=== PATIENT | male | born 1960 | race Caucasian/White ===

== ENCOUNTER → 2017-04-26 | Day surgery (SDC) | payer BC, OTHER ==
[~2017-04-26] MED LIST: HYDR-3533 PO; ROSU10 PO; TAMS0.4C67 PO; ZOFR4TAB3 SL
== END | disposition home or self-care (01) ==
LOC: ESDC 11:39
PROVIDERS: ATTEND Orthopaedic Surgery Orthopaedic Surgery of the Spine
DX: S83.242A Other tear of medial meniscus, current injury, left knee, initial encounter (principal); Z53.9 Procedure and treatment not carried out, unspecified reason
CPT/HCPCS: 99211; G0463

== ENCOUNTER → 2017-05-03 | Day surgery (SDC) | payer BC ==
[~2017-05-03] MED LIST changes: +ACETAMINOPHEN 325 MG TAB ONE; +BUPIVACAINE/EPINEPHRINE 0.5% PF 30 ML VIAL ONE; +KETOROLAC TROMETHAMINE 30 MG/ML (IVP) VIAL IV PUSH ONE; +LACTATED RINGER'S 1000 ML INJ 1,000 ML ONE; +MIDAZOLAM HCL 2 MG/2 ML VIAL ONE; +ONDANSETRON HCL 4 MG/2 ML VIAL IV PUSH ONE; +PROPOFOL 200 MG/20 ML AMP IV ONE; +ceFAZolin INJ 1,000 MG VIAL ONE
--- NOTE | 2017-05-03 16:56 | TN ---
cc: BREANN CHILDERS DATE OF SURGERY 05/03/2017 PREOPERATIVE DIAGNOSIS 1. Internal derangement of the left knee. 2. Probable medial meniscus tear, left knee. POSTOPERATIVE DIAGNOSIS Complex tear of the medial meniscus, left knee. PROCEDURE 1. Arthroscopy, left knee. 2. Arthroscopic medial meniscectomy. SURGEON Breann Childers MD ANESTHESIA General. ESTIMATED BLOOD LOSS Minimal. INDICATION This patient is a 57-year-old male with significant left knee pain. Investigative studies shows evidence of a complex tear of the posterior medial meniscus. He presents for surgical treatment. PROCEDURE The patient brought to the operating room, anesthetized in the supine position. Left leg was scrubbed with alcohol, followed by Hibiclens, followed Chloraprep and draped sterilely. Antibiotics were given within a 1 hour time window and a time-out was done. Inflow was established anterior and laterally. The knee was inflated. The suprapatellar pouch was unremarkable. Retropatellar surface showed grade 1 changes. The medial compartment showed a parrot beak type tear at the 9:30 position but evidence that this had torn through and had a detached bucket handle tear flipped into the notch. The medial femoral condyle and medial tibial plateau showed minimal changes. The ACL was normal. The lateral compartment was normal. A spinal needle was introduced along the medial joint line. Straight and angled punch was used to take the meniscus back to stable rim. The meniscus was debrided from approximately the 9 o'clock position to the posterior horn. All the fragments were floated free from the joint. The wound was irrigated copiously. The portals were injected with 0.5% Marcaine with epinephrine. They were closed with Steri-Strips and Benzoin. The patient was awakened and taken to recovery room in satisfactory condition. Breann Childers MD [facility] [place]O /4:25 PM /4:49 PM
== END | disposition home or self-care (01) ==
LOC: ESDC 13:49
PROVIDERS: ATTEND Orthopaedic Surgery Orthopaedic Surgery of the Spine
DX: S83.232A Complex tear of medial meniscus, current injury, left knee, initial encounter (principal)
CPT/HCPCS: 01400; 29881; J0690; J1885; J2250; J2405; J3010; J7120

== ENCOUNTER 2017-09-21 18:34 | Emergency (ER) | payer OTHER, BC ==
[~2017-09-21] VITALS: Ht 182.9 cm; Wt 120.0 kg
[~2017-09-21 18:34] MED LIST changes: -ACETAMINOPHEN 325 MG TAB ONE; -BUPIVACAINE/EPINEPHRINE 0.5% PF 30 ML VIAL ONE; -KETOROLAC TROMETHAMINE 30 MG/ML (IVP) VIAL IV PUSH ONE; -LACTATED RINGER'S 1000 ML INJ 1,000 ML ONE; -MIDAZOLAM HCL 2 MG/2 ML VIAL ONE; -ONDANSETRON HCL 4 MG/2 ML VIAL IV PUSH ONE; -PROPOFOL 200 MG/20 ML AMP IV ONE; -ceFAZolin INJ 1,000 MG VIAL ONE
[2017-09-21 18:37] VITALS: BP 148/95; PULSE 108; RESP 15; TEMP 98.2; O2SAT 98
[2017-09-21] MEDS ORDERED: CYCL10TA PO (19:20)
[2017-09-21] MEDS ORDERED: DICL75TA PO (19:20)
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
[2017-09-21] MEDS ORDERED: NAPROXEN 500 MG TAB PO ONE (19:30)
[2017-09-21] MEDS ORDERED: CYCLOBENZAPRINE HCL 10 MG TAB PO ONE (19:30)
== END 2017-09-21 19:43 | disposition home or self-care (01) ==
LOC: NEPK 18:34
DX: S20.212A Contusion of left front wall of thorax, initial encounter (principal); R05 Cough; R09.81 Nasal congestion; E78.00 Pure hypercholesterolemia, unspecified; V43.52XA Car driver injured in collision with other type car in traffic accident, initial encounter; Z79.899 Other long term (current) drug therapy
CPT/HCPCS: 99284